=== PATIENT | male | born 1975 | race Caucasian/White ===

== ENCOUNTER 2016-12-13 03:06 | Emergency (ER) | payer BC, OTHER ==
[~2016-12-13] VITALS: Ht 182.9 cm; Wt 99.7 kg
[2016-12-13 03:10] VITALS: TEMP 37.1; Ht 182.9 cm; Wt 99.7 kg
[2016-12-13] MEDS ORDERED: SODIUM CHLORIDE 0.9% 1000ML 1,000 ML IV STA ×3 (03:25→05:12)
[2016-12-13] MEDS ORDERED: ONDANSETRON INJ 2 MG/ML 2 ML VIAL IV STA (03:25)
[2016-12-13 03:34] LABS: BASO % 0.6 %; BASO ABS # 0.04 K/uL (0-0.2); COMPLETE YES; EOS % 2.9 %; HEMATOCRIT 45.6 % (42-52); IG% 0.1 %; LYMPH % 32.9 %; LYMPH ABS # 2.29 K/uL (1.2-3.4); MEAN CELL VOLUME 87.5 fL (80-100); MEAN CORPUSCULAR HEMOGLOBIN 30.1 pg (25-34); MEAN CORPUSCULAR HGB CONC 34.4 g/dl (32-36); MEAN PLATELET VOLUME 10.2 fL (7.4-10.4); MONO % 8.8 %; NEUT % 54.7 %; PLATELET COUNT 259 K/uL (130-400); RED BLOOD COUNT 5.21 M/uL (4.7-6.1); WHITE BLOOD COUNT 6.97 K/uL (4.8-10.8)
[2016-12-13] MEDS ORDERED: OPTIRAY 320 IV PRN (03:45)
[2016-12-13] MEDS ORDERED: GLC/500 PO (03:46)
[2016-12-13] MEDS ORDERED: OMEG10007 PO (03:47)
[2016-12-13] MEDS ORDERED: LISI2.5T5 PO (03:47)
[2016-12-13] MEDS ORDERED: AMLO-110 PO (03:48)
[2016-12-13 03:51] LABS: ALT/SGPT 65 U/L (12-78); AST/SGOT 18 U/L (15-37); BLOOD UREA NITROGEN 10 mg/dl (7-18); BUN/CREATININE RATIO 8.8 (10-20); CALCIUM 8.8 mg/dl (8.5-10.1); CARBON DIOXIDE 29 mmol/L (21-32); CHLORIDE 104 mmol/L (98-107); GLUCOSE 168 mg/dl (70-99); MAGNESIUM 2.4 mg/dl (1.8-2.4); SODIUM 141 mmol/L (136-145)
[2016-12-13 03:57] LABS: ALKALINE PHOSPHATASE 62 U/L (45-117)
[2016-12-13] MEDS ORDERED: ALUMINUM/MAGNESIUM SUSP 30 ML UDC PO STA (05:12)
[2016-12-13] MEDS ORDERED: LIDOCAINE HCL 2% VISC SOLN 20 ML UDC PO STA (05:12)
[2016-12-13 06:14] LABS: MANUAL MICROSCOPIC REQUIRED? NO; URINE APPEARANCE CLEAR (CLEAR); URINE BILIRUBIN NEG (NEG); URINE COLOR YELLOW; URINE NITRITE NEG (NEG); URINE PH 6.5 (4.5-7.5); UROBILINOGEN NEG (NEG)
[2016-12-13] MEDS ORDERED: DICYCLOMINE HCL 10 MG/ML 2 ML AMP IM ONE (06:15)
[2016-12-13 06:17] LABS: REVIEW REQ? NO
[2016-12-13 06:24] LABS: ZZUR CULT IF INDIC CLEAN CATCH NO
--- NOTE | 2016-12-13 06:37 | EMERGENCY ROOM VISIT NOTE ---
History First contact with patient: 03:15 Chief Complaint: ABDOMINAL PAIN Stated Complaint: STOMACH AND CHEST PAIN Nursing Triage Summary: PT presents with LUQ abd pain since yesterday. PT has squeezing pain, and pain with deep breathing. Nausea without vomiting, denies any fever/chills. PT denies diarrhea but "I had been having alot more bowel movements than normal" PT states the stool was "soft" and at this time "there is nothing left in there" Pt has normal bowel sounds in all quadrants, abd is tender to LUQ. Pt has no urinary symptoms. History of Present Illness The patient is a 41 year old male who presents to the Emergency Room with complaints of nausea and increased loose stool with abdominal pain for the past day that is getting steadily worse. He had a colonoscopy several years ago that was normal. He describes the pain as cramping, ranging in severity 8 out of 10 that is worse in the upper abdomen. Nothing makes it better or worse. Patient denies chest pain, dyspnea, fever, chills, cough, congestion, vomiting, diarrhea, urinary symptoms, back pain. Review of Systems See HPI for pertinent positives & negatives. A total of 10 systems reviewed and were otherwise negative. Past Medical/Surgical History Hypertension, diabetes Social History Smoking Status: Never Smoker Alcohol Use: occasionally Drug Use: none Occupation Status: employed Current/Historical Medications Scheduled Amlodipine (Norvasc), 5 MG PO DAILY Fish Oil (Romulus-3), 1 CAP PO DAILY Lisinopril (Lisinopril), 2.5 MG PO DAILY Metformin Hcl (Glucophage), 500 MG PO BID Allergies Uncoded Allergies: PENICILLIN (Allergy, Mild, not sure, 12/13/16) Physical Exam Vital Signs Date Time Temp Pulse Resp B/P Pulse Ox O2 Delivery O2 Flow Rate FiO2 12/13/16 04:58 80 18 130/73 98 Room Air 12/13/16 03:10 37.1 85 20 159/124 96 Room Air Physical Exam VITALS: Vitals are noted on the nurse's note and reviewed by myself. Vital signs stable. GENERAL: White male who appears in pain, nondiaphoretic, well-developed well- nourished. SKIN: The skin was without rashes, erythema, edema, or bruising. There is no tenting of the skin. Capillary reflex less than 2 seconds. HEAD: Normocephalic atraumatic. EARS: External auditory canals clear, tympanic membranes pearly velez without erythema or effusion bilaterally. EYES: Pupils equal round and reactive to light and accommodation. Conjunctivae without injection, sclerae without icterus. Extraocular movements intact. NOSE: Patent, turbinates without inflammation or discharge. MOUTH: Mucous membranes moist. Pharynx without erythema or exudate. Uvula midline. Airway patent. Tongue does not deviate. NECK: Supple without nuchal rigidity. No lymphadenopathy. No thyromegaly. Cervical spine is nontender. No JVD. HEART: Regular rate and rhythm without murmurs gallops or rubs. LUNGS: Clear to auscultation bilaterally without wheezes, rales or rhonchi. No dullness to percussion. No retractions or accessory muscle use. ABDOMEN: Positive bowel sounds x 4. Normal tympanic percussion. Soft, diffusely tender to palpation, no CVA tenderness, without masses or organomegaly. Romero sign negative. No guarding or rebound tenderness. MUSCULOSKELETAL: No muscle atrophy, erythema, or edema noted. NEURO: Patient was alert and oriented to person place and time. Normal sensation to light and sharp touch. No focal neurological deficits. Medical Decision & Procedures Laboratory Results 12/13/16 03:20 Red Blood Count 5.21, Mean Corpuscular Volume 87.5, Mean Corpuscular Hemoglobin 30.1, Mean Corpuscular Hemoglobin Concent 34.4, Mean Platelet Volume 10.2, Neutrophils (%) (Auto) 54.7, Lymphocytes (%) (Auto) 32.9, Monocytes (%) (Auto) 8.8, Eosinophils (%) (Auto) 2.9, Basophils (%) (Auto) 0.6, Neutrophils # (Auto) 3.82, Lymphocytes # (Auto) 2.29, Monocytes # (Auto) 0.61, Eosinophils # (Auto) 0.20, Basophils # (Auto) 0.04 12/13/16 03:20 Test 12/13/16 03:20 12/13/16 06:03 12/13/16 06:04 White Blood Count 6.97 K/uL (4.8-10.8) Red Blood Count 5.21 M/uL (4.7-6.1) Hemoglobin 15.7 g/dL (14.0-18.0) Hematocrit 45.6 % (42-52) Mean Corpuscular Volume 87.5 fL (80-100) Mean Corpuscular Hemoglobin 30.1 pg (25-34) Mean Corpuscular Hemoglobin Concent 34.4 g/dl (32-36) Platelet Count 259 K/uL (130-400) Mean Platelet Volume 10.2 fL (7.4-10.4) Neutrophils (%) (Auto) 54.7 % Lymphocytes (%) (Auto) 32.9 % Monocytes (%) (Auto) 8.8 % Eosinophils (%) (Auto) 2.9 % Basophils (%) (Auto) 0.6 % Neutrophils # (Auto) 3.82 K/uL (1.4-6.5) Lymphocytes # (Auto) 2.29 K/uL (1.2-3.4) Monocytes # (Auto) 0.61 K/uL (0.11-0.59) Eosinophils # (Auto) 0.20 K/uL (0-0.5) Basophils # (Auto) 0.04 K/uL (0-0.2) RDW Standard Deviation 43.2 fL (36.4-46.3) RDW Coefficient of Variation 13.4 % (11.5-14.5) Immature Granulocyte % (Auto) 0.1 % Immature Granulocyte # (Auto) 0.01 K/uL (0.00-0.02) Anion Gap 8.0 mmol/L (3-11) Est Creatinine Clear Calc Drug Dose 105.9 ml/min Estimated GFR () 94.8 Estimated GFR (Non- 81.8 BUN/Creatinine Ratio 8.8 (10-20) Calcium Level 8.8 mg/dl (8.5-10.1) Magnesium Level 2.4 mg/dl (1.8-2.4) Total Bilirubin 0.5 mg/dl (0.2-1) Direct Bilirubin 0.1 mg/dl (0-0.2) Aspartate Amino Transf (AST/SGOT) 18 U/L (15-37) Alanine Aminotransferase (ALT/SGPT) 65 U/L (12-78) Alkaline Phosphatase 62 U/L (45-117) Troponin I < 0.015 ng/ml (0-0.045) Total Protein 7.8 gm/dl (6.4-8.2) Albumin 4.2 gm/dl (3.4-5.0) Lipase 153 U/L (73-393) Bedside Lactic Acid Venous 1.81 mmol/L (0.90-1.70) Urine Color YELLOW Urine Appearance CLEAR (CLEAR) Urine pH 6.5 (4.5-7.5) Urine Specific [place]lin 1.010 (1.000-1.030) Urine Protein NEG (NEG) Urine Glucose (UA) TRACE (NEG) Urine Ketones NEG (NEG) Urine Occult Blood NEG (NEG) Urine Nitrite NEG (NEG) Urine Bilirubin NEG (NEG) Urine Urobilinogen NEG (NEG) Urine Leukocyte Esterase NEG (NEG) Medications Administered Medications (Trade) Dose Ordered Sig/Keke Route Start Time Stop Time Status Last Admin Dose Admin Sodium Chloride 1,000 ml @ 999 mls/hr Q1H1M STAT IV 12/13/16 03:25 12/13/16 04:25 DC 12/13/16 03:54 999 MLS/HR Sodium Chloride (Nss 1000ml) 1,000 ml @ 125 mls/hr Q8H STAT IV 12/13/16 03:25 12/13/16 11:24 12/13/16 04:55 125 MLS/HR Ondansetron HCl 4 mg 4 mg NOW STAT IV 12/13/16 03:25 12/13/16 03:28 DC 12/13/16 03:53 4 MG Sodium Chloride (Nss 1000ml) 1,000 ml @ 999 mls/hr Q1H1M STAT IV 12/13/16 05:12 12/13/16 06:12 DC 12/13/16 05:12 999 MLS/HR Lidocaine HCl (Viscous Lidocaine 2% Soln) 10 ml NOW STAT PO 12/13/16 05:12 12/13/16 05:13 DC 12/13/16 05:12 10 ML Al Hydroxide/Mg Hydroxide (Maalox Susp) 30 ml NOW STAT PO 12/13/16 05:12 12/13/16 05:13 DC 12/13/16 05:12 30 ML Dicyclomine HCl (Bentyl Inj) 20 mg NOW ONCE IM 12/13/16 06:15 12/13/16 06:16 DC 12/13/16 06:19 20 MG ED Course Prior records/ancillary studies reviewed. Triage Nursing notes reviewed. The patient's history was concerning for abdominal pain. Differential diagnosis: Etiologies such as appendicitis, diverticulitis, PUD, biliary pathology, UTI, pancreatitis, obstruction, mesenteric ischemia, aortic pathology, infections, inflammatory bowel disease, renal colic, as well as others were entertained. Physical examination findings: As above. ER treatment provided: IV fluids, Zofran. Patient declined pain medicine On reassessment the patient felt better. Diagnostics interpreted by me: ECG: Sinus, normal intervals, no acute ST-T wave changes. Impression normal sinus interpreted by myself The labs revealed hyperglycemia without DKA. Mildly elevated lactic acid repeat was improved this could be from dehydration Imaging studies: CT ABDOMEN & PELVIS: No evidence of acute process. No free fluid. No free air. The bowel is normal caliber. Appendix is normal. Hepatic steatosis. Gallbladder, pancreas, spleen, kidneys and adrenals are unremarkable. Radiologist: Garcia Smiley MD Chest x-ray with no acute consolidation, pneumothorax or free air per my interpretation Exam and history seem consistent with abdominal pain with unclear etiology. This could be IBS. He felt better to be medicated as above. He's been having some loose stool. He is advised to follow-up GI for update colonoscopy and family care. He is advised to return to the ER immediately for severe pain, fevers, vomiting, worsening signs or symptoms or as needed. Patient declined pain medication and requests to go home. I felt this is reasonable. By the evaluation outlined above emergent etiologies such as appendicitis, diverticulitis, PUD, biliary pathology, UTI, pancreatitis, obstruction, mesenteric ischemia, aortic pathology, infections renal colic, as well as others were deemed relatively unlikely. The pt informed about the findings as listed above. All questions were answered and pleased with the treatment. Return instructions were outlined and the patient was discharged in stable condition. Outpatient prescription management: Bentyl Referral: The patient was referred back to their primary care physician and GI for follow- up in 2 to 3 days for a recheck of the current condition. Case reviewed with my attending Medical Decision As above Impression Primary Impression: Generalized abdominal pain Additional Impression: Hyperglycemia due to type 2 diabetes mellitus Departure Information Dispostion Home / Self-Care Condition GOOD Referrals No Doctor, Assigned (PCP) Patient Instructions [facility] Additional Instructions Bentyl 10 m tablet every 8 hours as needed for abdominal cramping Recommend bland diet. Monitor your blood sugars. Ibuprofen(Motrin, Advil) may be used for fever or pain. Use 600mg every six hours as needed. Take with food. Avoid using more than 2400mg in a 24 hour period. Do not use 2400mg per day for more than three consecutive days without physician direction. Prolonged inappropriate use can lead to stomach upset or ulcers. (AND/OR) Acetaminophen(Tylenol) may be used for fever or pain. Use 1000mg every six hours as needed. Avoid using more than 3000mg in a 24 hour period. Rest and drink plenty of fluids as tolerated. Continue current medications. Avoid strenuous activities and anything that worsens your pain. Resume normal activities once your symptoms resolve. Return to the ER immediately for worsening or persistent abdominal pain, vomiting, fevers, chest pains, difficulty breathing, worsening of your condition , or as needed. Follow up with your primary physician and/or GI in 2-3 days for a recheck of your current condition. Problem Qualifiers
[2016-12-13] MEDS ORDERED: DICY10CA55 PO (06:38)
[2016-12-13] MEDS ORDERED: BENTYL HOME PACK 10 MG VIAL PO ONE (06:45)
[2016-12-13 06:58] VITALS: BP 149/86; PULSE 85; O2SAT 95
--- NOTE | 2016-12-13 07:31 | DIAGNOSTIC IMAGING REPORT ---
CT SCAN OF THE ABDOMEN AND PELVIS WITH IV CONTRAST CLINICAL HISTORY: Generalized abdominal pain. COMPARISON STUDY: No priors. TECHNIQUE: Following the IV administration of 91 cc of Optiray 320, CT scan of the abdomen and pelvis is performed from the lung bases to the proximal femora. Images are reviewed in the axial, sagittal, and coronal planes. IV contrast was administered without complication. Automated dose control exposure was utilized. CT DOSE: 675.80 mGy.cm FINDINGS: Lung bases: The heart is normal in size and without pericardial effusion. The lung bases are clear noting dependent atelectasis. Liver: The contrast-enhanced liver is enlarged measuring 23.5 cm in length. The liver demonstrates diffusely diminished attenuation consistent with hepatic steatosis. Fatty sparing is seen adjacent to the gallbladder fossa. There is no intrahepatic biliary ductal dilatation. The hepatic veins and portal veins are patent. Gallbladder: Unremarkable. Spleen: Normal in size and attenuation. Pancreas: Unremarkable. Adrenal glands: Unremarkable. Kidneys: The contrast enhanced kidneys are normal in size and without hydronephrosis. The kidneys enhance symmetrically. Abdominal vasculature: The abdominal aorta is normal in course and caliber noting scattered foci of atherosclerotic calcification. Bowel: The small bowel and colon are normal in course and caliber. The appendix is well-visualized and normal. Peritoneum: There is no intraperitoneal free air or abdominal ascites. There is a small fat-containing umbilical hernia. Lymphadenopathy: None. Pelvic viscera: The bladder, prostate, and seminal vesicles are normal as imaged. Skeletal structures: No lytic or blastic lesions are seen. IMPRESSION: 1. There are no acute infectious or inflammatory findings in the abdomen or pelvis. 2. Hepatomegaly and severe hepatic steatosis. Electronically signed by: Sam Blackwood M.D. 12/13/2016 7:30 AM Dictated Date/Time: 12/13/2016 7:27 AM
--- NOTE | 2016-12-13 07:46 | DIAGNOSTIC IMAGING REPORT ---
CHEST ONE VIEW PORTABLE CLINICAL HISTORY: CHEST PAIN dyspnea COMPARISON STUDY: No previous studies for comparison. FINDINGS: The bones soft tissues and hemidiaphragms are normal. The cardiomediastinal silhouette is normal. The lungs are clear. The pulmonary vasculature is normal. IMPRESSION: Negative chest. Electronically signed by: Nick Juarez M.D. 12/13/2016 7:45 AM Dictated Date/Time: 12/13/2016 7:44 AM
== END 2016-12-13 06:59 | disposition home or self-care (01) ==
LOC: C.EDB 03:07 → C.EDA 06:59
DX: R52 Pain, unspecified (principal); E11.65 Type 2 diabetes mellitus with hyperglycemia; I10 Essential (primary) hypertension; Z79.84 Long term (current) use of oral hypoglycemic drugs; Z79.899 Other long term (current) drug therapy; Z88.0 Allergy status to penicillin

== ENCOUNTER → 2017-07-15 | Outpatient (CLI) | payer OTHER ==
[~2017-07-15] VITALS: Ht 181.6 cm; Wt 99.3 kg
[~2017-07-15] MED LIST: AMLO-110 PO; GLC/500 PO; LISI2.5T5 PO; OMEG10007 PO
[2017-07-15 14:35] VITALS: BP 122/66; PULSE 77; Ht 181.6 cm; Wt 99.3 kg
== END | disposition home or self-care (01) ==
LOC: C.NEUR 14:06
PROVIDERS: ATTEND Internal Medicine Pulmonary Disease
DX: G47.33 Obstructive sleep apnea (adult) (pediatric) (principal); R53.83 Other fatigue

== ENCOUNTER → 2017-10-03 | Outpatient (CLI) | payer OTHER ==
--- NOTE | 2017-10-05 14:45 | POLYSOMNOGRAPH REPORT ---
CLINICAL DATA: A 42-year-old male with a BMI of 30, referred by myself and Dr. Guzman. He had a previous sleep study done which showed mild sleep apnea with an AHI of 7. He had difficulty tolerating CPAP during a titration study and never started treatment. He has worsening of symptoms and his Alexander sleepiness score is 12/24. On the evening of September 2017, a home sleep apnea test was performed using a Sidney type 3 monitor. RECORDING RESULTS: Total recording time was 10 hours. The patient's estimated sleep time and monitoring time was 8.3 hours. RESPIRATORY DATA: At least mild sleep apnea was documented. The REYMUNDO was 9.6. There were 8 obstructive and 2 mixed apneic episodes. There were 70 hypopneic episodes. The longest respiratory event was 54 seconds. OXIMETRY DATA: Oxygen reji was 74%. Mean saturation was 93%. Time below 89% was 16 minutes. HEART RATE DATA: Heart rates ranged from 53-73 beats per minute. SNORING DATA: Snoring was recorded throughout the night except for the 2-hour period when he appeared to have taken off all of his monitors. INTERACTIVE MEDIA PROJECT MANAGER'S COMMENTS: There was snoring present throughout the night. He awoke once through the night and realized he had removed all of his monitors, so he reattached everything and went back to sleep. There was a 2-hour period during the night where there was no electrode recording. IMPRESSION: Mild sleep apnea/hypopnea with a respiratory event index of 9.6 with nocturnal hypoxemia. This sleep study is limited due to the fact that there was a 2-hour data loss period in the middle of the night. RECOMMENDATIONS: The patient may benefit from use of an oral appliance or a repeat sleep study with CPAP. Clinical correlation is needed. ABEL
== END | disposition home or self-care (01) ==
LOC: C.NEUR 09:45
PROVIDERS: ATTEND Internal Medicine Pulmonary Disease
DX: R53.83 Other fatigue (principal); I10 Essential (primary) hypertension; G47.33 Obstructive sleep apnea (adult) (pediatric)

== ENCOUNTER → 2017-10-18 | Outpatient (CLI) | payer OTHER ==
[~2017-10-18] VITALS: Ht 185.4 cm; Wt 222.0 kg
[2017-10-18 15:43] VITALS: BP 127/88; PULSE 101; Ht 185.4 cm; Wt 222.0 kg
== END | disposition home or self-care (01) ==
LOC: C.NEUR 14:57
PROVIDERS: ATTEND Physician Assistant Medical
DX: G47.34 Idiopathic sleep related nonobstructive alveolar hypoventilation (principal); I10 Essential (primary) hypertension; E11.9 Type 2 diabetes mellitus without complications

== ENCOUNTER → 2017-11-29 | Outpatient (CLI) | payer OTHER ==
--- NOTE | 2017-11-30 06:28 | PAP/PSG TECHNICIAN REPORT ---
[facility] Crew Leader/Control Room Operator Polysomnogram Report Study name: None Report date: 11/30/2017 Study date: 11/29/2017 Referring Physician: Martín Cox M.D. Name: RODRCIKJOELLE Interpreting Physician: Martín Cox M.D. Date of : 1975 Crew Leader/Control Room Operator: Nkechi Rocha RPSGT. Sex: Male Age: 42 Study Type: PSG PAP Weight: 222 lbs 18.5 in Height: 42 years, Height 6' 1" Neck Circum: BMI: 29.29 Medications: ASPIRIN 81 MG, LISINOPRIL 10 MG, METFORMIN 1000 MG, [id number] ETHYL ESTERS 1 GM, ROSUVASTATIN 5 MG, VIT B-12, VIT D3 1000 UNIT Patient History 42 yr-old male here for a new CPAP treatment study. He was found to be positive for BUDDY via a home sleep study. His AHI was 9. He chose an AirFit P10 nasal pillows mask size small from [employer]. The test was started on room air and 4 CMH2O ETCO2 testing was not included in this study. Room 1 Parameters Monitored NPSG: E1-M2, E2-M1, Fp1-M2, Fp2-M1, F3-M2, F4-M2, F4-M1, C3-M2, C4-M2, C4-M1, O1-M2, O2-M2, O2-M1, T3-M2, T4-M1, P3-M2, P4-M1, CHIN1, CHIN2, HR, EKG, Legs, PFLOW, SNOR, FLOW, CFLOW, Tidal Volume, THOR, ABDO, SpO2, PLTH, CPRESS, ETCO2 Wave, ETCO2, pH Sleep Architecture Sleep Stages Time at Lights Off 10:16:07 PM STAGES Time (min.) TST (%) Time at Lights On 5:31:37 AM Wake 56.0 -- Total Recording Time (TRT) 435.50 min. N1 32.0 8 Total Sleep Period (TSP) 426.5 min. N2 236.0 62 Total Sleep Time (TST) 379.5min. N3 0.0 0 Awake Time 56.0 min. REM 111.5 29 Wake after Sleep Onset 47.0 min. Sleep Efficiency (SE) 87 % Sleep Onset Latency (DONALD) 9.0 min. Number of Stage 1 Shifts None Awakenings 10 Stage Changes 85 Number of REM periods 4 REM 111.5 29 REM Latency 127.5 min. NREM 268.0 71 Body Position Analysis Supine Right Left Side Prone Vertical Total Sleep Time (min.) 210.6 111.7 92.5 204.15 0.0 0.0 Total Sleep Time (%) 46% 29% 24% 54 0% N/A% Total Sleep Time REM (min.) 93.8 17.7 0.0 None 0.0 0.0 Total Sleep Time NREM (min.) 81.5 94.0 92.5 None 0.0 0.0 Intermittent Wake (min.) 35.3 2.5 18.3 None 0.0 0.0 Total Sleep Period (%) 47% None None None None None Arousals Myoclonus (PLM) * Events Count Index Events Count Index Spontaneous 39 6 Events Awake (PLMW) 88 94.3 Respiratory 1 0.0 Events Asleep w/ Arousal (PLMA) 23 3.6 PLM 23 4 Events Asleep w/o Arousal (PLMS) 115 18.2 Snoring 2 0 Total Asleep 138 21.8 Total 65 10 Total 226 31 Respiratory Analysis * CA OA MA CH H RERA Total Count 0 0 0 0 22 0 22 Index 0.0 0.0 0.0 0 3.5 0 3.5 Mean Duration 0.0 0.0 0.0 0.00 18.9 0.0 18.9 Longest Duration 0.0 0.0 0.0 0.00 0.0 0.0 27.4 Respiratory Event Summary Total Supine ~Supine Right Left Prone REM NREM Apneas Count 0 0 0 0 0 N/A 0 0 Index 0.0 0 0 0.0 0.0 N/A 0 0 Hypopneas (4% Desat) Count 22 18 4 1 3 N/A 18 4 Index 3.5 6.2 1 0.5 1.9 N/A 9.7 0.9 Apneas & All Hypopneas Count 22 18 4 1 3 N/A 18 4 Index 3.5 6 1 1 2 N/A 9.7 0.9 Respiratory Events (Long Chain Quiller Tender+All Hyp+RERA) Count 22 18 4 1 3 N/A 18 4 Index 3.5 6 1 0.5 1.9 N/A 9.7 0.9 Respiratory Related Arousal Count 1 18 0 0 0 N/A 0 0 Index 0.0 0 0 0 0 N/A 0 0 Snoring Analysis Supine Right Left Prone REM NREM Total Snore duration 1.1 min Snores count 12 23 5 N/A 15 25 40 Snore mean duration 1.6 Sec Snores index 4 12 3 N/A 8.1 5.6 6.3 TST with snoring (%) 0.3% Desaturation Event Summary: Minimum %SpO2 Event Count Mean/Min/Max Duration(sec.) Desaturation Index % Time In Bed > 90 59 28.3 / 4.3 / 60.0 8.3 98.7 86 - 90 1 11.5 / 11.5 / 11.5 11.1 1.2 81 - 85 0 N/A 0.0 0.1 76 - 80 0 N/A 0.0 0.0 71 - 75 0 N/A 0.0 0.0 66 - 70 0 N/A 0.0 0.0 61 - 65 0 N/A 0.0 0.0 56 - 60 0 N/A 0.0 0.0 51 - 55 0 N/A 0.0 0.0 < 50 0 N/A 0.0 0.0 Total REM NREM Awake <50% 0.0 min. 0.0 min. 0.0 min. 0.0 min. 51 - 60% 0.0 min. 0.0 min. 0.0 min. 0.0 min. 61 - 70% 0.0 min. 0.0 min. 0.0 min. 0.0 min. 71 - 80% 0.0 min. 0.0 min. 0.0 min. 0.0 min. 81 - 90% 5.8 min. 5.2 min. 0.0 min. 0.6 min. 91 - 100% 428.5 min. 106.4 min. 267.0 min. 55.1 min. Average 95 95 95 94 Minimum SpO2 80 82 80 89 Desaturation Event Index 8.3 14.5 3.1 20.4 # Desat. Events below 89% 7 7 N/A N/A Time(%) with Saturation below 89% 0.4 0.4 0.0 0.0 Time(min.) with Saturation below 89% 1.6 1.6 0.0 0.0 Time (mins) REM (mins) NREM (mins) % of TST SpO2 Below 90% 13 13 NN/A 0.8 SpO2 Below 88% 3 0 0 0 Heart Rate Analysis Min (bpm) Max (bpm) Average (bpm) Awake 62 101 75 NREM 56 83 69 REM 58 85 69 Overall 56 85 69 Supplemental O2 Values Minimum O2 level: None Value Start Time End Time Crew Leader/Control Room Operator Comments Mr. Avila slept in the right, left, and supine positions. No cardiac arrhythmias were noted. Some PLMs were noted. No bruxism noted. CPAP was initiated at +4 CMH2O and up-titrated to a level of +6 CMH2O, Cflex which nearly eliminated all respiratory events and snoring. An AirFit P10 nasal pillows mask size small from [employer] was used during titration. He did not wake up to use the restroom during the night. Mr. Avila stated that he noticed he did not get up to use the restroom and slept ok. The final report will be interpreted and signed by a sleep physician. The completed physician report will then be placed in the patient medical record. CPAP REPORT Therapy Detail Time / Page # Comment CPAP 4 cm H2O Nasal Pillow Mask Flex Pressure Relief Humidifier on 10:13:13 PM / pg. 272 CPAP 5 cm H2O Nasal Pillow Mask Flex Pressure Relief Humidifier on 12:37:33 AM / pg. 560 INCREASED FOR HYPOPNEAS IN REM CPAP 6 cm H2O Nasal Pillow Mask Flex Pressure Relief Humidifier on 1:02:06 AM / pg. 609 INCREASED FOR MORE HYPOPNEAS IN REM Therapy Event: Therapy (cm H20) 4 5 6 Total Time at Pressure (min.) 141.4 24.6 269.5 TST at Pressure (min.) 106.4 24.6 248.5 # Periods 1 1 1 Sleep Onset (min.) 9.0 0.0 0.0 REM Onset (min.) 136.5 0.0 0.0 Sleep Efficiency % 75 100 92 Wakefulness (%) 24.7 0.0 7.8 Wakefulness (min.) 35.0 0.0 21.0 NREM 1 (%) 15.2 0.0 3.9 NREM 1 (min.) 21.5 0.0 10.5 NREM 2 (%) 56.6 0.0 57.9 NREM 2 (min.) 80.0 0.0 156.0 NREM 3 (%) 0.0 0.0 0.0 NREM 3 (min.) 0.0 0.0 0.0 REM (%) 3.5 100.0 30.4 REM (min.) 4.9 24.6 82.0 # Arousals 45 0 20 Arousal Index 25.4 0.0 4.8 # Snore 5 3 32 Snore Index 2.8 7.3 7.7 AHI 2.8 26.9 1.4 AHI Supine 8.6 26.9 2.2 AHI Non-Supine 1.9 N/A 0.5 NREM AHI 1.8 N/A 0.4 REM AHI 24.4 26.9 3.7 RDI 2.8 26.9 1.4 # Obstructive 0 0 0 # Central Ap 0 0 0 # Mixed 0 0 0 # Hypopneas 5 11 6 RERAS 0 0 0 Total Respiratory Events 5 11 6 Time Below SpO2 89.00% (min.) 0.3 0.9 0.5 Mean NREM SpO2 (%) 94 N/A 95 Mean REM SpO2 (%) 92 93 95 Mean Sleep SpO2 (%) 94 93 95 Min NREM SpO2 (%) 80 N/A 92 Min REM SpO2 (%) 85 82 88 Position Supine (min.) 13.9 24.6 136.9 Position Non-supine (min.) 92.5 0.0 111.7 LM Index Sleep 43.4 2.4 14.5 LM Index NREM 45.5 N/A 16.6 LM Index REM 0.0 2.4 10.2 Mean Heart Rate (bpm) 71 71 68 Min Heart Rate (bpm) 62 64 56
== END | disposition home or self-care (01) ==
LOC: C.NEUR 20:00
PROVIDERS: ATTEND Physician Assistant Medical
DX: R53.83 Other fatigue (principal); I10 Essential (primary) hypertension; G47.30 Sleep apnea, unspecified; G47.34 Idiopathic sleep related nonobstructive alveolar hypoventilation; E11.9 Type 2 diabetes mellitus without complications